=== PATIENT | female | born 1975 | race Caucasian/White ===

== ENCOUNTER 2024-07-02 08:13 | Observation (INO) ==
--- NOTE | 2024-05-28 10:11 | PAT Medication Instructions ---
Medication Instructions Date of Service May 28, 2024 Home Medications Collagen Peptide Powder 4 tbsp PO QAM Hemp Works Cbd Oil 15 mg PO DAILY Nature Made Choleftoff 4 cap PO DAILY Restless Sleep Vitamin 1 dose PO HS amitriptyline 50 mg tablet 75 mg PO HS ascorbic acid (vitamin C) 1,000 mg tablet (Vitamin C) 1 g PO QAM calcium 600 mg capsule 600 mg PO QAM cholecalciferol (vitamin D3) 125 mcg (5,000 unit) tablet (Vitamin D3) 125 mcg PO QAM coQ10 (ubiquinol) 200 mg capsule 200 mg PO QPM cyanocobalamin (vitamin B-12) 1,000 mcg capsule 1,000 mcg PO 3XWK levothyroxine 50 mcg tablet 50 mcg PO DAILY multivitamin 1 tab PO QAM omega-3 fatty acids 500 mg PO QAM psyllium husk 0.4 gram capsule (Metamucil) 0.4 g PO UD turmeric 400 mg capsule 1,000 mg PO QPM Continue as directed levothyroxine 50 mcg tablet 50 mcg PO DAILY STOP taking 2 weeks before surgery (or as soon as possible if surgery is within 2 weeks) Collagen Peptide Powder 4 tbsp PO QAM Hemp Works Cbd Oil 15 mg PO DAILY Nature Made Choleftoff 4 cap PO DAILY Restless Sleep Vitamin 1 dose PO HS coQ10 (ubiquinol) 200 mg capsule 200 mg PO QPM turmeric 400 mg capsule 1,000 mg PO QPM omega-3 fatty acids 500 mg PO QAM DO NOT take the morning of surgery ascorbic acid (vitamin C) 1,000 mg tablet (Vitamin C) 1 g PO QAM calcium 600 mg capsule 600 mg PO QAM cholecalciferol (vitamin D3) 125 mcg (5,000 unit) tablet (Vitamin D3) 125 mcg PO QAM cyanocobalamin (vitamin B-12) 1,000 mcg capsule 1,000 mcg PO 3XWK multivitamin 1 tab PO QAM psyllium husk 0.4 gram capsule (Metamucil) 0.4 g PO UD Take evening before surgery amitriptyline 50 mg tablet 75 mg PO HS Other Notes NOTHING TO EAT OR DRINK AFTER MIDNIGHT. If you have any questions please call us at [phone] or [phone] or [phone] or [phone]
--- NOTE | 2024-06-04 10:57 | Anesthesiology Consultation ---
Date of Service June 04, 2024 Assessment & Plan (1) Encounter for pre-operative examination: - Check test DOS - Infectious disease screening: Per assessment on 06/04/24- No known recent infectious disease contacts or current infectious disease symptoms. - Patient acceptable risk for surgery pending surgeon-ordered PCP preop evaluation ([facility], appt 06/09). Chart Review Chart Review: Patient seen in Pre Admission Testing Teaching & Discussion Pre-Anesthesia Teaching/Discussion Notes: Instructed NPO after midnight before surgery,except medications with 15 cc of water. Medication instructions provided according to the PAT guidelines. History Surgery Operation Date: 07/02/24 10:05 Proposed Procedures p L3 to L4 Decompression and Fusion - Rubin Park, Height/Weight Height: 5 ft 5 in Weight: 82.8 kg Allergies Allergy/AdvReac Type Severity Reaction Status Date / Time No Known Allergies Allergy Verified 05/26/24 11:05 Medications Home Medications Medication Instructions Recorded Confirmed Last Taken Collagen Peptide Powder 4 tbsp PO QA 05/26/24 05/26/24 Unknown Hemp Works Cbd Oil 15 mg PO DAILY 05/26/24 05/26/24 Unknown Nature Made Choleftoff 4 cap PO DAILY 05/26/24 05/26/24 Unknown Restless Sleep Vitamin 1 dose PO HS 05/26/24 05/26/24 Unknown amitriptyline 50 mg tablet 75 mg PO HS 05/26/24 05/26/24 Unknown ascorbic acid (vitamin C) 1,000 mg 1 g PO QAM 05/26/24 05/26/24 Unknown tablet (Vitamin C) calcium 600 mg capsule 600 mg PO QAM 05/26/24 05/26/24 Unknown cholecalciferol (vitamin D3) 125 125 mcg PO QAM 05/26/24 05/26/24 Unknown mcg (5,000 unit) tablet (Vitamin D3) coQ10 (ubiquinol) 200 mg capsule 200 mg PO QPM 05/26/24 05/26/24 Unknown cyanocobalamin (vitamin B-12) 1,000 mcg PO 3XWK 05/26/24 05/26/24 Unknown 1,000 mcg capsule levothyroxine 50 mcg tablet 50 mcg PO DAILY 05/26/24 05/26/24 Unknown multivitamin 1 tab PO QAM 05/26/24 05/26/24 Unknown omega-3 fatty acids 500 mg PO M 05/26/24 05/26/24 Unknown psyllium husk 0.4 gram capsule 0.4 g PO UD 05/26/24 05/26/24 Unknown (Metamucil) turmeric 400 mg capsule 1,000 mg PO QPM 05/26/24 05/26/24 Unknown Past Medical History Medical History (Updated 06/04/24 @ 10:56 by Linda Nelson) Arthritis Back pain Degenerative disc disease High cholesterol Hypothyroidism Insomnia Kidney function abnormal Small left kidney with diminished function Follows with [facility] Spinal stenosis Exercise / Class Metabolic Activity II 4-5 Yardwork/Stairs/Walk up hill (one FS: No CP, no SOB) Past Family History Family History (Updated 05/26/24 @ 11:18 by Marina Negrete RN) Other No family history of adverse response to anesthesia Past Surgical History Surgical History (Updated 06/01/24 @ 12:11 by Linda Nelson) H/O cosmetic surgery (2017) Tummy tuck with liposuction History of dilatation and curettage History of mandibular surgery Hx TMJ (no current issues) S/P LASIK surgery of both eyes Past Anesthesia History No Hx of Anesthesia Complications and No Family Hx of Anesthesia Complications History of PONV No Hx of PONV and No Hx of Motion Sickness Social History Smoking Status: Never smoker Do You Dip or Chew Tobacco: No Hx Alcohol Use: Yes Alcohol type: beer and other alcohol intake frequency: a few times a month substance use type: does not use Review of Systems Patient denies chest pain, shortness of breath, dyspnea on exertion, fever, chills, cough, wheezing. Physical Exam Vital Signs BP 138/94 P 76 TEMP 98.5 SP02 100%RA RESP 16 Physical Full cervical extension range of motion. Full TMJ range of motion. TMD > 3.5 finger breaths Mallampati Score II Dentition: intact Lungs: clear throughout to auscultation Cardiac: regular rate and rhythm, no murmurs noted Spine: normal Extremities: no LE edema Lab Results Anesthesia Preop Results Results Anesthesia Widget: WBC 6.19 K/ul (4.8-10.8) 06/04/24 Hgb 12.9 g/dl (12.0-16.0) 06/04/24 Hct 38.3 % (37.0-47.0) 06/04/24 Plt 267 K/uL (130-400) 06/04/24 Na 139 mmol/L (136-145) 06/04/24 K 4.3 mmol/L (3.5-5.1) 06/04/24 Cl 104 mmol/L (98-107) 06/04/24 CO2 28 mmol/L (21-32) 06/04/24 BUN 12 mg/dl (6-23) 06/04/24 Creat 0.81 mg/dl (0.6-1.2) 06/04/24 Glucose Level 97 mg/dl (70-99(Fasting)) 06/04/24 PT 10.4 Seconds (9.0-12.0) 06/04/24 PTT 27 Seconds (21-31) 06/04/24 INR 1.0 (0.9-1.1) 06/04/24 Urine Color Yellow 06/04/24 Urine Appearance Clear (Clear) 06/04/24 Urine pH 8.0 (4.5-7.5) H 06/04/24 Urine Specific [place] 1.004 (1.000-1.030) 06/04/24 Urine Protein Negative (Negative) 06/04/24 Urine Glucose (UA) Negative (Negative) 06/04/24 Urine Ketones Negative (Negative) 06/04/24 Urine Blood Negative (Negative) 06/04/24 Urine Nitrite Negative (Negative) 06/04/24 Urine Bilirubin Negative (Negative) 06/04/24 Urine Urobilinogen Negative (Negative) 06/04/24 Urine Leukocyte Esterase Trace (Negative) H 06/04/24 Urine WBC (Auto) 0-5 /hpf (0-5) 06/04/24 Urine RBC (Auto) 0-2 /hpf (0-2) 06/04/24 Urine Hyaline Casts (Auto) 0-2 /lpf (0-2) 06/04/24 Urine Epithelial Cells (Auto) 0-2 /hpf (0-2) 06/04/24 Urine Bacteria (Auto) None Seen (None Seen) 06/04/24 Blood Type A Positive 06/04/24 Antibody Screen NEGATIVE 06/04/24 Testing Electrocardiogram Date: 06/04/24 Findings: + NSR @ (81) Chest X-Ray Date: 06/04/24 FINDINGS: Cardiomediastinal and hilar silhouettes are within normal limits. No pneumothorax, pleural effusion, airspace consolidation or pulmonary edema. The bones of the chest appear grossly intact. IMPRESSION: No acute process.
[2024-07-02] MEDS ORDERED: MIDAZOLAM HCL 1 MG/ML 2ML VIAL ONE (08:44)
[2024-07-02] MEDS ORDERED: LIDOCAINE 2% 2 ML VIAL/AMP(20MG/ML) INFIL ONE (08:45)
[2024-07-02] MEDS ORDERED: fentaNYL citrate PF 100 MCG/2 ML VIAL ONE (08:45)
[2024-07-02] MEDS ORDERED: ROCURONIUM BROMIDE 10 MG/ML 5 ML VIAL IV ONE (08:46)
[2024-07-02] MEDS ORDERED: PROPOFOL IV EMULSION 10 MG/ML 20 ML VIAL IV ONE (08:46)
[2024-07-02] MEDS: CeleBREX 200 MG CAP PO SCH (09:03)
[2024-07-02] MEDS: ACETAMINOPHEN 500 MG TAB PO SCH (09:03)
[2024-07-02] MEDS: GABAPENTIN 900 MG DOSE PO SCH (09:03)
[2024-07-02] MEDS: LR 60ML/HR IV SCH (09:04)
[2024-07-02] MEDS ORDERED: ONDANSETRON INJ 2 MG/ML 2 ML VIAL IV PRN ×2 (09:05→13:48)
[2024-07-02] MEDS ORDERED: HYDROmorphone INJ 1 MG/ML SYRINGE IV PRN (09:05)
[2024-07-02] MEDS ORDERED: fentaNYL citrate PF 100 MCG/2 ML VIAL IV PRN (09:05)
[2024-07-02] MEDS ORDERED: ePHEDrine sulfate 50 MG/ML AMP IV PRN (09:05)
[2024-07-02] MEDS ORDERED: ATROPINE SULFATE 0.1 MG/ML 10ML SYR IV PRN (09:05)
[2024-07-02] MEDS ORDERED: PROMETHAZINE HCL 6.25 MG in SODIUM CHLORIDE 0.9% 50 ML IV PRN (09:05)
[2024-07-02] MEDS: LR 15ML/HR IV SCH (09:25)
--- NOTE | 2024-07-02 09:44 | History & Physical Bridge Note ---
Date of Service July 02, 2024 History & Physical Bridge Note I have examined the patient, reviewed the History & Physical and in the interval since the performance of the History & Physical I have noted the following changes of clinical significance: no changes noted
--- NOTE | 2024-07-02 09:45 | History & Physical Report ---
Date of Service July 02, 2024 Assessment & Plan (1) Spondylolisthesis, lumbar region: Plan: L3-L4 decompression and fusion History of Present Illness Chief Complaint: Back and leg pain Primary Care Provider: Margareth Gillespie This is a 49-year-old female who presents chronic persistent back and leg pain after failing course of nonoperative care is here for surgical intervention. Allergies Allergy/AdvReac Type Severity Reaction Status Date / Time No Known Allergies Allergy Verified 07/02/24 09:00 Home Medications Medication Instructions Recorded Confirmed Type Collagen Peptide Powder 4 tbsp PO QAM 05/26/24 07/02/24 History Hemp Works Cbd Oil 15 mg PO DAILY 05/26/24 07/02/24 History Nature Made Choleftoff 4 cap PO DAILY 05/26/24 07/02/24 History Restless Sleep Vitamin 1 dose PO HS 05/26/24 07/02/24 History amitriptyline 50 mg tablet 75 mg PO HS 05/26/24 07/02/24 History ascorbic acid (vitamin C) 1,000 mg 1 g PO QAM 05/26/24 07/02/24 History tablet (Vitamin C) calcium 600 mg capsule 600 mg PO QAM 05/26/24 07/02/24 History cholecalciferol (vitamin D3) 125 125 mcg PO QAM 05/26/24 07/02/24 History mcg (5,000 unit) tablet (Vitamin D3) coQ10 (ubiquinol) 200 mg capsule 200 mg PO QPM 05/26/24 07/02/24 History cyanocobalamin (vitamin B-12) 1,000 mcg PO 3XWK 05/26/24 07/02/24 History 1,000 mcg capsule levothyroxine 50 mcg tablet 50 mcg PO DAILY 05/26/24 07/02/24 History multivitamin 1 tab PO QAM 05/26/24 07/02/24 History omega-3 fatty acids 500 mg PO QAM 05/26/24 07/02/24 History psyllium husk 0.4 gram capsule 0.4 g PO UD 05/26/24 07/02/24 History (Metamucil) turmeric 400 mg capsule 1,000 mg PO QPM 05/26/24 07/02/24 History Past Med/Surg History Problem List (Updated 07/02/24 @ 09:45 by Rubin Park DO) Spondylolisthesis, lumbar region Encounter for pre-operative examination Medical History (Updated 07/02/24 @ 09:45 by Rubin Park DO) Degenerative disc disease Spinal stenosis Arthritis Kidney function abnormal Small left kidney with diminished function Follows with urology Hypothyroidism Back pain Insomnia High cholesterol Surgical History History of mandibular surgery Hx TMJ (no current issues) History of dilatation and curettage H/O cosmetic surgery (2017) Tummy tuck with liposuction S/P LASIK surgery of both eyes Family History Other No family history of adverse response to anesthesia Social History Smoking Status: Never smoker Second Hand Exposure: No; Do You Dip or Chew Tobacco: No; Hx Alcohol Use: Yes Alcohol type: beer and other Preferred Language: [place] [employer] Officer Required: No Beliefs That Will Affect Care: None Current Living Situation: Family Feels Safe at Home: Yes Safety Concerns: Feels Safe At This Time Assistive Devices: Glasses Assistive Devices Comment: reading glasses Physical Exam Physical Exam: Patient is alert and oriented heart regular rhythm Lungs clear Results & Data Results & Data Vital Signs (Past 12 Hours) Vital Signs Temp Pulse Resp BP Pulse Ox O2 Del Method 07/02/24 08:58 36.7 C 90 20 136/82 100 Room Air
[2024-07-02] MEDS: ceFAZolin 2000MG 2,000 MG/15 ML SYR IV SCH ×2 (10:16→17:47)
[2024-07-02] MEDS ORDERED: KETAMINE HCL 10MG/ML SYR ONE (10:31)
[2024-07-02] MEDS ORDERED: HYDROmorphone INJ 2 MG/ML SYR/VIAL ONE (10:34)
[2024-07-02] MEDS ORDERED: ONDANSETRON INJ 2 MG/ML 2 ML VIAL ONE (10:34)
[2024-07-02] MEDS ORDERED: DEXAMETHASONE SOD INJ 4 MG/ML VIAL ONE (10:34)
[2024-07-02] MEDS: BUPIVACAINE/EPINEPHRINE 0.25% 1:200,000 30 ML VIAL ONE (10:34)
[2024-07-02] MEDS ORDERED: PHENYLEPHRINE 100MCG/ML 5ML SYR ONE (10:57)
[2024-07-02] MEDS: ceFAZolin 330 MG/ML 1 GM VIAL ONE (10:57)
[2024-07-02] MEDS: SURGICEL ABSORB HEMOSTAT 2IN X 14IN TOP SCH (10:58)
[2024-07-02] MEDS: FLOSEAL HEMOSTATIC MATRIX 10ML TOP ONE (11:31)
[2024-07-02] MEDS ORDERED: SUGAMMADEX SODIUM 200 MG/2 ML VIAL IV ONE ×2 (11:41→11:58)
--- NOTE | 2024-07-02 11:42 | Operative Report ---
Post Operative Report Pre & Post Diagnosis Operation Date: 07/02/24 10:05 Pre-Op Diagnosis: #1 lumbar spondylosis with radiculopathy #2 lumbar spondylolisthesis with radiculopathy #3 lumbar disc herniation with radiculopathy Post-Op Diagnosis: Same I identified the patient and participated in the time-out.: Yes Procedure Operation Date: 07/02/24 10:05 Actual Procedures #1 lumbar decompression bilateral mid facetectomies and foraminotomies L2-L3 L3- L4. #2 posterior spinal fusion L3-L4. #3 placement posterior instrumentation L3-L4 using Plascencia. #4 interbody fusion L3-L4. #5 position of Spira 12 x 26 mm x 2 at L3-L4. #6 placement locally harvested morselized autograft and posterior gutters per #7 placement infuse collagen sponge, with Koros in the posterior lateral gutters and os design and interbody space. #8 application of versa wrap over the exposed dura. Surgeon Rubin Park, Special Procedures Nurse Juan Luis Whiet Estimated Blood Loss 200 Findings Consistent with Post-Op Diagnosis Specimens None Indications This is a 49-year-old female presents publish diagnosis of failed course of nonoperative care is here for surgical invention. Description of Procedure Patient was met with identified informed consent obtained. Patient was then taken to the operative suite underwent intubation placed in a prone position ingestible atop the Armando frame. All bony prominences well-padded eyes inspected to ensure no external pressure placed upon them. This point lumbar spine was prepped and draped no sterile fashion. Sharp dissection with assistance of Bovie cautery as informed down to and exposing the lamina transverse processes of L3-L4. Obvious bilateral pars defect identified. A complete laminectomy of L3 was then performed including bilateral medial facetectomies and foraminotomies addressing all neural compression. This is followed by partial laminectomy L2 with bilateral medial facetectomies to address subarticular stenosis. Pedicle screws in place at L3-L4 bilaterally with assistance of fluoroscopy in the process myla placed. By way of transfer approach on the right discectomy of L3-L4 was performed endplates corrected to subcortical bleeding bone and a 12 x 26 mm spiral cage filled with os design bone graft tapped into position. Then proceeded to the left transforaminal region at L3-L4. Again complete discectomy performed. Endplates guided to subcortical bleeding bone. A second 12 x 26 mm Spira cage filled os designed tapped into position. The rods then compressed locked in a final position bilaterally. The transverse processes of L2-3 L4 burred to subcortical bleeding bone. Infuse collagen sponge, with Koros and local autograft placed in posterior gutters. 15 round MICHEL drain inserted. Versa wrap placed over the exposed dura. Complex portion of the surgery and final skin closure. Incision was then closed with 1 Vicryl the fascia 2-0 Vicryl subcutaneously and 4 Monocryl for final skin closure. Steri-Strips and sterile dressing placed. Patient waken taken PACU stable condition. Please note spinal cord monitoring was utilized at the procedure no changes noted. Juan Luis William was present at the entire surgery and while the patient positioning I attest to the content of the Intraoperative Record and any orders documented therein. Any exceptions are noted below.
--- NOTE | 2024-07-02 11:56 | Fluoroscopy Report ---
FL lumbar spine 2-3V CLINICAL HISTORY: L3-L4 DECOMPRESSION AND FUSION COMPARISON STUDY: None FLUOROSCOPY TIME: 18 seconds FLUOROSCOPY IMAGES: 3 EXPOSURE DOSE: 14 mGy FINDINGS: Fluoroscopy was provided for L3-4 decompression and instrumented fusion. IMPRESSION: Intraoperative fluoroscopy. ACT 112: Negative or not required by law. Electronically signed by: James Elder M.D. 07/02/2024 11:55 AM
[2024-07-02] MEDS ORDERED: SOD PHOSPHATE/SOD BIPHOSPHATE ENEMA 132 ML BTL PR PRN (13:48)
[2024-07-02] MEDS ORDERED: MAGNESIUM HYDROXIDE SUSP 30 ML UDC PO PRN (13:48)
[2024-07-02] MEDS ORDERED: bisacodyL 10 MG SUPP PR PRN (13:48)
[2024-07-02] MEDS ORDERED: HYDROmorphone INJ 0.5 MG/0.5 ML SYR IV PRN (13:48)
[2024-07-02] MEDS ORDERED: NALOXONE HCL 0.4 MG/1 ML VIAL/CARP IV PRN (13:48)
[2024-07-02] MEDS ORDERED: PROMETHAZINE 12.5 MG/50.5 ML BAG IV PRN (13:48)
[2024-07-02] MEDS ORDERED: DO NOT ADMINISTER FLU VACCINE PRN (13:48)
[2024-07-02] MEDS ORDERED: LORazepam 0.5 MG TAB PO PRN (13:48)
[2024-07-02] MEDS ORDERED: ACETAMINOPHEN 1,000 MG/100 ML VIAL IV PRN (13:48)
[2024-07-02] MEDS ORDERED: hydrOXYzine HCl 25 MG TAB PO PRN (13:48)
[2024-07-02] MEDS ORDERED: FAMOTIDINE 20 MG TAB PO PRN (13:48)
[2024-07-02] MEDS ORDERED: LORazepam 2 MG/1 ML VIAL IV PRN (13:48)
[2024-07-02] MEDS ORDERED: ALUMINUM/MAGNESIUM SUSP 30 ML UDC PO PRN (13:48)
[2024-07-02] MEDS ORDERED: METOCLOPRAMIDE HCL INJ 5 MG/ML 2 ML VIAL IV PRN (13:48)
[2024-07-02] MEDS ORDERED: DO NOT ADMINISTER PNEUMOCOCCAL VACCINE PRN (13:48)
[2024-07-02] MEDS ORDERED: diphenhydrAMINE Capsule 25 MG CAP PO PRN (13:48)
[2024-07-02] MEDS ORDERED: ACETAMINOPHEN 500 MG TAB PO PRN (13:48)
[2024-07-02] MEDS ORDERED: ONDANSETRON 4 MG OD TAB PO PRN (13:48)
--- NOTE | 2024-07-02 15:08 | Anesthesiology Progress Note ---
Date of Service July 02, 2024 Anesthesia Post Procedure Vital Signs Vital Signs: Temp Pulse Pulse Resp BP Pulse Ox O2 Del Method 07/02/24 14:18 37 C 91 H 18 121/73 93 Room Air 07/02/24 14:16 36.6 C 94 H 18 114/67 94 Room Air 07/02/24 13:48 36.5 C 89 18 124/70 92 Room Air 07/02/24 13:45 36.5 C 90 18 114/66 94 Room Air 07/02/24 13:25 88 12 111/64 94 Room Air 07/02/24 13:10 87 12 127/69 98 Room Air 07/02/24 12:55 90 14 112/68 98 Room Air 07/02/24 12:40 36.2 C L 92 H 14 112/68 100 Oxymask 07/02/24 12:30 96 H 12 122/64 100 Oxymask 07/02/24 12:20 93 H 10 L 113/75 100 Oxymask 07/02/24 12:10 92 H 11 L 118/73 100 Oxymask 07/02/24 12:04 36.0 C L 88 10 L 106/63 98 Oxymask 07/02/24 08:58 36.7 C 90 20 136/82 100 Room Air O2 Flow Rate 07/02/24 14:18 07/02/24 14:16 07/02/24 13:48 07/02/24 13:45 07/02/24 13:25 07/02/24 13:10 07/02/24 12:55 07/02/24 12:40 5 07/02/24 12:30 5 07/02/24 12:20 7 07/02/24 12:10 7 07/02/24 12:04 7 07/02/24 08:58 Pain Intensity Bilateral Back: Pain Intensity: 2 Transfer of Care Handoff Completed per policy Notes Mental Status: alert / awake / arousable and participated in evaluation Patient Amnestic to Procedure: Yes Nausea / Vomiting: adequately controlled Pain: adequately controlled Airway Patency, RR, SpO2: stable & adequate BP & HR: stable & adequate Hydration State: stable & adequate Anesthetic Complications: no major complications apparent and Pt Satisfied with anesthetic care
[2024-07-02] MEDS: traMADol HCL 50 MG TABLET PO PRN (17:57)
[2024-07-02] MEDS ORDERED: [UNRECOGNIZED DRUG - OTHER] PO SCH (21:00)
[2024-07-02] MEDS ORDERED: NON-FORMULARY MEDICATION (Coq10 (Ubiquinol) 200 mg Capsule) PO SCH (21:00)
[2024-07-02] MEDS: AMITRIPTYLINE HCL 25 MG TAB PO SCH (21:29)
[2024-07-02] MEDS: DOCUSATE SODIUM/SENNA 50/8.6MG TAB PO SCH (21:54)
[2024-07-03] MEDS: POLYETHYLENE (MIRALAX) 17 GM PACK PO SCH (06:19)
[2024-07-03 07:08] LABS: Basophils # (auto) 0.03 K/uL (0.00-0.20); Basophils % (auto) 0.2 %; Eosinophils # (auto) 0.03 K/uL (0.00-0.50); Eosinophils % (auto) 0.2 %; Hematocrit (blood only) 30.5 % (37.0-47.0); Hemoglobin 10.2 g/dl (12.0-16.0); Immature Granulocytes # (auto) 0.05 K/uL (0.01-0.20); Immature Granulocytes % (auto) 0.4 %; Lymphocytes # (auto) 2.09 K/uL (1.20-3.40); Lymphocytes % (auto) 15.9 %; Mean Corpuscular Hemoglobin 29.8 pg (25.0-34.0); Mean Corpuscular Hgb Conc 33.4 g/dL (32.0-36.0); Mean Corpuscular Volume 89.2 fL (80.0-100.0); Mean Platelet Volume 9.7 fL (9.4-12.4); Monocytes # (auto) 1.21 K/uL (0.11-0.59); Monocytes % (auto) 9.2 %; Neutrophils # (auto) 9.72 K/uL (1.40-6.50); Neutrophils % (auto) 74.1 %; Platelet Count 232 K/uL (130-400); RDW Coefficient of Variation 12.6 % (11.5-14.5); RDW Standard Deviation 41.3 fL (36.4-46.3); Red Blood Count 3.42 M/uL (4.20-5.40); White Blood Count 13.13 K/ul (4.8-10.8)
[2024-07-03 07:13] LABS: BUN Creatinine Ratio 12.2 (10-20); Calcium 8.2 mg/dl (8.6-10.3); Creatinine Clr Calc Pharmacy 87.5 ml/min
[2024-07-03] MEDS: HYDROmorphone INJ 1 MG/ML SYRINGE IV PRN (07:43)
--- NOTE | 2024-07-03 08:19 | Orthopedic Progress Note ---
Date of Service July 03, 2024 Assessment & Plan (1) Spondylolisthesis, lumbar region: Plan: At this time initiate physical therapy monitor MICHEL output over the discharge home next few days. Admission and Anticipated Discharge Date Admission Date: July 02, 2024 Subjective Patient's back pain is controlled leg symptoms improved Physical Exam Physical Exam: Patient is currently in bed. She is sitting up. Has constricted testing. Results & Data Vital Signs (Past 12 Hours) Vital Signs Temp Pulse Resp BP Pulse Ox O2 Del Method 07/03/24 07:19 37.1 C 89 17 121/78 96 Room Air 07/03/24 03:29 36.9 C 91 H 16 113/77 95 Room Air 07/02/24 23:00 36.7 C 98 H 18 125/75 94 Room Air
[2024-07-03] MEDS: LEVOTHYROXINE SODIUM 50 MCG TABLET PO SCH (09:11)
[2024-07-03] MEDS: CHOLECALCIFEROL 125 MCG (5,000 UNITS) TAB PO SCH (09:12)
[2024-07-03] MEDS: dexAMETHasone 6 MG in SYRINGE 0 ML IV SCH (09:12)
[2024-07-03] MEDS: CALCIUM CARBONATE 1250MG TAB PO SCH (09:12)
[2024-07-03] MEDS: ASCORBIC ACID 500 MG TAB PO SCH (09:12)
[2024-07-03] MEDS: MULTIVITAMIN TAB PO SCH (12:03)
[2024-07-04 07:24] VITALS: BP 124/79; PULSE 97; RESP 16; TEMP 97.9; O2SAT 96
[2024-07-04] MEDS: oxyCODONE HCL IR 5 MG TAB (IMMEDIATE RELEASE) PO PRN (08:17)
--- NOTE | 2024-07-04 08:55 | Discharge Summary ---
Date of Service July 04, 2024 Admission HPI Per Admitting Provider This is a 49-year-old female who presents chronic persistent back and leg pain after failing course of nonoperative care is here for surgical intervention. Discharge Data Procedures Performed Operation Date: 07/02/24 10:05 Actual Procedures p L3 to L4 Decompression and Fusion, Spinal Cord Monitoring(Not Applicable) - Rubin Park DO Hospital Course (1) Spondylolisthesis, lumbar region: Patient is a pleasant 49-year-old female with history physical examination and radiographic images consistent with the above-mentioned diagnosis. This reason she was brought to the operating room on 07/02/2024 and undergone a lumbar decompression and fusion at L3-4. This was performed by Dr. Park under general anesthesia. She left the operating room with a MICHEL drain in place and was transferred to PACU in stable condition. She is then transferred to the orthopedic floor. She was seen by physical therapy postoperative day #1. Her pain is well-controlled. Throughout her hospital course her calves remain supple and nontender and her abdomen drained supple and nontender. Today postoperative day #2 she was deemed safe for home discharge. Her discharge instructions were to lift nothing heavier than 5 to 7 pounds. She should not perform any full bending at the waist and minimize twisting. She is to change her dressing once daily until there is no drainage once there is no drainage she may leave it open to air and she may start to shower. For follow-up care she was a follow-up with our office approximately 2 weeks out from her surgery or sooner if she developed any increased drainage from the incision increasing pain fevers or chills.
[2024-07-05] MEDS ORDERED: CYANOCOBALAMIN 1000 MCG PO SCH (09:00)
== END 2024-07-04 10:17 | disposition home or self-care (01) | DRG 428 ==
LOC: ASU 08:13 → INTOOBSV 11:46 → 3N 11:46